=== PATIENT | female | born 1985 | race Caucasian/White ===

== ENCOUNTER 2018-03-17 22:26 | Emergency (ER) | payer BC ==
[2018-03-18 01:13] VITALS: BP 133/99
== END 2018-03-18 01:13 | disposition home or self-care (01) ==
LOC: ED 22:26
DX: N39.0 Urinary tract infection, site not specified (principal); F17.210 Nicotine dependence, cigarettes, uncomplicated; Z71.6 Tobacco abuse counseling
CPT/HCPCS: 99406

== ENCOUNTER 2019-03-10 13:16 | Emergency (ER) | payer SELFPAY ==
[~2019-03-10] VITALS: Ht 165.1 cm; Wt 64.0 kg
[2019-03-10 13:25] VITALS: BP 122/86
== END 2019-03-10 14:27 | disposition left against medical advice (07) ==
LOC: ED 13:16
DX: Z53.21 Procedure and treatment not carried out due to patient leaving prior to being seen by health care provider (principal)